=== PATIENT | male | born 1945 | race African-American/Black ===

== ENCOUNTER 2020-01-31 00:53 | Inpatient (IN) | payer MEDICARE, OTHER ==
[2020-01-31] VITALS (11 sets, daily range): BP systolic 132–171; BP diastolic 65–87
[~2020-01-31] VITALS: Ht 182.9 cm; Wt 97.1 kg
--- NOTE | ~2020-01-31 | EEG ---
[address] [address] EEG STUDY REPORT Name: HUGOMILADIS L Room: [address] [place] .R#: [id number] Admission: 01/31/20 Attend Phys: Gilberto Madrigal MD Discharge: Date of : 49 Report #: [id number] THIS REPORT FOR: //name// CC: Gilberto Madrigal [facility] physician/PCP DATE OF SERVICE: 01/31/2020 This patient's EEG was done to evaluate for the possibility of seizure. EEG was done by placing the electrode by standard 10/20 system of electrode placement. Both referential and sequential montages were used for recording. Background activity in this patient's EEG is about 9 Hz and 30 microvolt. The patient went to sleep. That is associated with bilateral slowing and vertex sharp waves. Photic stimulation is unremarkable. Throughout the record, no active epileptiform activity was noticed. IMPRESSION: This patient's EEG is within normal limits. No active epileptiform activity was noticed. It might be mentioned that EEG can be normal in a patient with seizure disorder. Thank you very much for this referral. By: [id number] Swartz MD /nt
[2020-01-31] MEDS ORDERED: METFORMIN HCL500 M3 PO (01:15)
[2020-01-31] MEDS ORDERED: SIMVASTATIN80 MG PO (01:16)
[2020-01-31] MEDS ORDERED: PRINIVIL10 MG PO (01:17)
[2020-01-31] MEDS ORDERED: ASA81BEC PO (01:22)
[2020-01-31] MEDS ORDERED: ALLOPURINOL PO (01:25)
[2020-01-31 01:30] LABS: ABSOLUTE BASOPHILS 0.1 thou/uL (0.0-0.2); ABSOLUTE EOSINOPHILS 0.2 thou/uL (0.0-0.7); ABSOLUTE LYMPHOCYTES 1.7 thou/uL (0.8-5.3); ABSOLUTE MONOCYTES 0.5 thou/uL (0.0-1.2); BASOPHILS 1.9 %; HEMATOCRIT 30.7 % (42.0-52.0); HEMOGLOBIN 10.6 gm/dL (14.0-18.0); LYMPHOCYTES 26.1 %; MCH 34.4 pg (26.0-34.0); MCHC 34.4 g/dL (28.0-37.0); MONOCYTES 7.4 %; MPV 7.8 fl. (7.2-11.1); NUCLEATED RBCS 0 /100WBC; PLATELET COUNT* 360 thou/uL (150-400); POLYS 61.6 %; RBC 3.08 mil/uL (4.50-6.00); RDW-CV 14.6 % (10.5-14.5); WBC 6.6 thou/uL (4.0-11.0)
[2020-01-31 01:37] LABS: CALCIUM 9.5 mg/dL (8.5-10.1); CREATININE 1.5 mg/dL (0.6-1.3)
[2020-01-31 01:40] LABS: PROTIME 10.1 Seconds (9.20-11.50)
[2020-01-31 01:47] LABS: ALBUMIN 4.1 g/dL (3.4-5.0); MAGNESIUM 1.7 mg/dL (1.8-2.4); TOTAL BILIRUBIN 0.3 mg/dL (<0.1-1.0)
[2020-01-31 02:06] LABS: % SATURATION 25 % (20-39); IRON 93 ug/dL (50-175)
[2020-01-31 02:56] LABS: URINE BILIRUBIN NEGATIVE (Negative); URINE BLOOD TRACE (Negative); URINE CLARITY CLEAR; URINE COLOR YELLOW; URINE GLUCOSE-RANDOM NEGATIVE (Negative); URINE KETONES TRACE (Negative); URINE LEUKOCYTES-REFLEX NEGATIVE (Negative); URINE NITRITE-REFLEX NEGATIVE (Negative); URINE PROTEIN 2+ (Negative); URINE SPECIFIC GRAVITY 1.025 (1.005-1.030); URINE UROBILINOGEN 0.2 E.U./dl (0.2-1.0)
[2020-01-31 03:11] LABS: BACTERIA-REFLEX >30 Many /HPF (None Seen); CRYSTALS None Seen /LPF (None Seen); FINE GRANULAR CASTS 0-3 Few /LPF (None Seen); HYALINE CASTS 0-3 Few /LPF (None Seen); MUCUS 4-6 Moderate strn/LPF (None Seen); SQUAMOUS 0-3 Few /LPF (0-3); URINE RBC 3-10 Few /HPF (0-2); URINE WBC-REFLEX 0-5 Rare /HPF (0-5)
--- NOTE | 2020-01-31 16:15 | EKG ---
[place] [address] ELECTROCARDIOGRAM REPORT Name: MILADIS ARIAS Room: [address] [place] [facility]#: [id number] Admission: 01/31/20 Attend Phys: Gilberto Madrigal, Discharge: Date of : 49 Date of Service: 01/31/20 0130 Report #: [id number] THIS REPORT FOR: //name// [facility] ED Test Date: 2020-01-31 Test Time: 01:30:35 Pat Name: MILADIS ARIAS Department: Room: [facility] Gender: M Adjunct Faculty Mathematics Department: HENRRY : 1945 Requested By: Alyssa Donald Order Number: [id number] MD: Dale Tovar Measurements Intervals [place] Rate: 92 P: 52 SD: 203 QRS: -57 QRSD: 120 T: 63 QT: 390 QTc: 483 Interpretive Statements Sinus rhythm Left anterior fascicular block Minimal ST elevation, anterior leads probably normal variant Artifact in lead(s) I,II,III,aVR,aVF and baseline wander in lead(s) II,aVF,V1,V2,V5 No previous ECG available for comparison Electronically Signed On 01-31-2020 16:15:13 CDT by Dale Tovar [email or web address] <ELECTRONICALLY SIGNED> By: Dale Tovar MD, [facility] 01/31/20 1615 9 9 Dale Tovar MD, [facility] /EPI
[2020-02-01] VITALS: BP 140/119
[2020-02-01 00:29] VITALS: BP 133/71
[2020-02-01 03:26] LABS: HEMATOCRIT 27.1 % (42.0-52.0); HEMOGLOBIN 9.3 gm/dL (14.0-18.0); MCH 33.9 pg (26.0-34.0); MCHC 34.2 g/dL (28.0-37.0); MCV 99.4 fL (80.0-100.0); MPV 8.4 fl. (7.2-11.1); RBC 2.73 mil/uL (4.50-6.00); RDW-CV 14.1 % (10.5-14.5); WBC 6.8 thou/uL (4.0-11.0)
[2020-02-01 03:51] LABS: CALCIUM 8.6 mg/dL (8.5-10.1); CREATININE 1.1 mg/dL (0.6-1.3); MAGNESIUM 1.6 mg/dL (1.8-2.4); PHOSPHORUS* 3.2 mg/dL (2.5-4.9); POTASSIUM 3.6 mmol/L (3.5-5.1); TOTAL BILIRUBIN 0.5 mg/dL (<0.1-1.0); TOTAL PROTEIN 6.3 g/dL (6.4-8.2)
[2020-02-01 04:28] VITALS: BP 151/75
[2020-02-01] MEDS ORDERED: KEPPRA XR500 MG PO (07:59)
[2020-02-01] MEDS ORDERED: CIPRO500 M1 PO (07:59)
[2020-02-01 08:00] VITALS: BP 140/74
[2020-02-01 12:00] VITALS: BP 130/70
[2020-02-01 12:54] VITALS: BP 130/70
== END 2020-02-01 13:15 | disposition home or self-care (01) | DRG 101 ==
LOC: M.ERS 00:53 → M.ICU 03:23 → M.TBA-ER 03:23 → M.ICU 04:13 → M.2W 02-01 04:15
PROVIDERS: Emergency Medicine; Internal Medicine; ADMIT Internal Medicine; ATTEND Internal Medicine
DX: R56.9 Unspecified convulsions (principal); N17.9 Acute kidney failure, unspecified; N39.0 Urinary tract infection, site not specified; E11.9 Type 2 diabetes mellitus without complications; I10 Essential (primary) hypertension; E78.00 Pure hypercholesterolemia, unspecified; F10.10 Alcohol abuse, uncomplicated; D64.9 Anemia, unspecified; Z20.828 Contact with and (suspected) exposure to other viral communicable diseases; Z88.0 Allergy status to penicillin; Z28.21 Immunization not carried out because of patient refusal; Z79.899 Other long term (current) drug therapy